=== PATIENT | male | born 1980 | race Caucasian/White ===

== ENCOUNTER 2017-01-03 16:04 | Emergency (ER) | payer MEDICAID ==
--- NOTE | 2017-01-03 17:24 | UC ---
Ear Complaint HPI - HPI Summary HPI Summary: patient has had 2 days of bloody milky white draninage from the right ear - History of Current Complaint Chief Complaint: UCEar Stated Complaint: EAR DRAINAGE Time Seen by Provider: 01/03/17 17:10 Hx Obtained From: Patient Onset/Duration: Sudden Onset, Lasting Days Severity Initially: Mild Severity Currently: Mild Associated Signs/Symptoms: Positive: Discharge - Allergies/Home Medications Allergies/Adverse Reactions: Allergies Allergy/AdvReac Type Severity Reaction Status Date / Time Amoxicillin Allergy Unknown Verified 06/28/15 14:25 Reaction Details Eggs or Egg-derived Products Allergy Unknown Verified 06/28/15 14:25 Reaction Details Influenza Vaccines Allergy Unknown Verified 06/28/15 14:25 Reaction Details Penicillins Allergy Unknown Verified 06/28/15 14:25 Reaction Details PMH/Surg Hx/FS Hx/Imm Hx Previously Healthy: Yes Endocrine History Of: Denies: Diabetes, Thyroid Disease Cardiovascular History Of: Denies: Cardiac Disorders, Hypertension Respiratory History Of: Denies: COPD, Asthma GI/ History Of: Denies: Ulcer - Surgical History Surgical History: Unable to Obtain/Confirm - Family History Known Family History: Positive: Hypertension, Seizure Disorder - Social History Alcohol Use: None Substance Use Type: None Smoking Status (MU): Never Smoked Tobacco Review of Systems Constitutional: Negative Skin: Negative Eyes: Negative ENT: Ear Ache Respiratory: Negative Cardiovascular: Negative Gastrointestinal: Negative Genitourinary: Negative Motor: Negative Neurovascular: Negative Musculoskeletal: Negative Neurological: Negative Psychological: Negative All Other Systems Reviewed And Are Negative: Yes Physical Exam Triage Information Reviewed: Yes Appearance: No Pain Distress, Well-Nourished, Ill-Appearing, Pain Distress Vital Signs: Initial Vital Signs Temp 97.7 F 01/03/17 17:11 Resp 20 01/03/17 17:11 Vital Signs Reviewed: Yes Eye Exam: Normal ENT: Positive: Pharyngeal erythema, TM red, Other: - external otitis noted in right ear Dental Exam: Normal Neck exam: Normal Neck: Positive: Supple, Nontender, No Lymphadenopathy Respiratory Exam: Normal Respiratory: Positive: Chest non-tender, Lungs clear, Normal breath sounds Cardiovascular Exam: Normal Cardiovascular: Positive: RRR, No Murmur, Pulses Normal Abdominal Exam: Normal Abdomen Description: Positive: Nontender, No Organomegaly, Soft Bowel Sounds: Positive: Present Musculoskeletal Exam: Normal Musculoskeletal: Positive: Strength Intact, ROM Intact, No Edema Neurological Exam: Normal Neurological: Positive: Alert Psychological Exam: Normal Psychological: Positive: Age Appropriate Behavior Skin Exam: Normal Ear Complaint Course/Dx - Course Course Of Treatment: hx obtained, meds reviewed, exam performed, meds prescribed. - Differential Dx/Diagnosis Differential Diagnosis/HQI/PQRI: Foreign Body, Otitis Externa, Otitis Media, URI Provider Diagnoses: Otitis externa right ear Discharge - Discharge Plan Condition: Stable Disposition: HOME Prescriptions: Ciproflox/Dexameth OTIC.SUSP* [Ciprodex OTIC.SUSP*] 4 drop RIGHT EAR BID #1 btl Patient Education Materials: Otitis Externa (ED) Additional Instructions: Use the medication as prescribed. Follow up as needed.
== END 2017-01-03 17:44 | disposition home or self-care (01) ==
LOC: UCEAST 16:04
DX: H60.91 Unspecified otitis externa, right ear (principal); Z88.1 Allergy status to other antibiotic agents; Z88.0 Allergy status to penicillin
CPT/HCPCS: 99212; G0463

== ENCOUNTER 2017-01-10 16:12 | Emergency (ER) | payer MEDICAID ==
[2017-01-10 17:19] VITALS: BP 100/85
--- NOTE | 2017-01-10 18:44 | UC ---
Ear Complaint HPI - HPI Summary HPI Summary: The patient comes in today for: 1. Right ear drainage: Onset: one week ago. Palliative/provocative: Nothing. Quality: Bloody discharge. Region: Right ear Severity: No know pain behavior. Associated symptoms: Event: He had diagnosis of right otitis externa. He got his last dose this AM. He was picked up from his work site with more drainage than before. He has a diagnosis of profound hearing loss. But, he does not act like he has less hearing. Fevers: None. * - History of Current Complaint Chief Complaint: UCEar Stated Complaint: EAR COMPLAINT Time Seen by Provider: 01/10/17 18:38 Hx Obtained From: Patient, Family/Warehouse Receiving Clerk - Allergies/Home Medications Allergies/Adverse Reactions: Allergies Allergy/AdvReac Type Severity Reaction Status Date / Time Amoxicillin Allergy Unknown Verified 01/10/17 17:01 Reaction Details Eggs or Egg-derived Products Allergy Unknown Verified 01/10/17 17:01 Reaction Details Influenza Vaccines Allergy Unknown Verified 01/10/17 17:01 Reaction Details Penicillins Allergy Unknown Verified 01/10/17 17:01 Reaction Details PMH/Surg Hx/FS Hx/Imm Hx Previously Healthy: No - Cerebral palsy with spasticity, IDD, profound hearing loss, depression Endocrine History Of: Denies: Diabetes, Thyroid Disease, Hyperthyroidism, Hypothyroidism, Dyslipidemia Cardiovascular History Of: Denies: Cardiac Disorders, Hypertension, Pacemaker/ICD, Myocardial Infarction , Congestive Heart Failure, Atrial Fibrillation, Deep Vein Thrombosis, Bleeding Disorders Respiratory History Of: Denies: COPD, Asthma, Bronchitis, Pneumonia, Pulmonary Embolism GI/ History Of: Denies: Gastroesophageal Reflux, Ulcer, Gastrointestinal Bleed, Gall Bladder Disease, Kidney Stones, Diverticulitis, Renal Disease, Urosepsis Neurological History Of: Denies: TIA, CVA, Dementia, Seizures, Migraine Psychological History Of: Reports: Depression Denies: Anxiety, Bipolar Disorder, Schizophrenia, Post Traumatic Stress Disorder Cancer History Of: Denies: Lung Cancer, Colorectal Cancer, Breast Cancer, Prostate Cancer, Cervical Cancer Other History Of: Negative For: HIV, Hepatitis B, Hepatitis C, Anticoagulant Therapy - Surgical History Surgical History: None - Family History Known Family History: Positive: Hypertension, Seizure Disorder - Social History Occupation: Unemployed Alcohol Use: None Substance Use Type: None Smoking Status (MU): Never Smoked Tobacco Review of Systems Constitutional: Negative Eyes: Negative ENT: Ear Ache Respiratory: Negative Cardiovascular: Negative Gastrointestinal: Negative Genitourinary: Negative All Other Systems Reviewed And Are Negative: Yes Physical Exam Triage Information Reviewed: Yes Completion Of Physical Exam Limited Due To: Other - He is non-vocal. He is cooperative. Appearance: No Pain Distress, Well-Nourished, Ill-Appearing Vital Signs: Initial Vital Signs Temp 98.5 F 01/10/17 17:02 Pulse 84 01/10/17 17:02 Resp 18 01/10/17 17:02 BP 100/85 01/10/17 17:02 Vital Signs Reviewed: Yes Eyes: Positive: Conjunctiva Clear. Negative: Discharge ENT: Positive: Hearing grossly normal, Other: - He would not open his mouth. Left TM marrero and translucent. Right TM not seen. Copious purulent and hemorrhagic discharge from right ear. He would not allow for me to examine it.. Negative: Nasal congestion, Nasal drainage Dental: Negative: Gross Decay/Caries @, Dental Fracture @ Neck: Positive: Supple, Nontender, No Lymphadenopathy. Negative: Nuchal Rigidity Respiratory: Positive: Lungs clear, No respiratory distress, No accessory muscle use. Negative: Crackles, Wheezing Cardiovascular: Positive: RRR, No Murmur Abdomen Description: Positive: Nontender, No Organomegaly, Soft Musculoskeletal: Positive: Strength Intact, ROM Intact, Other: - He has spastic legs. Neurological: Positive: Alert. Negative: Muscle Tone Normal - He has spastic legs. Psychological: Positive: Other: - He is interactive in behavior and is cooperative. Skin: Negative: rashes, breakdown Diagnostics - Laboratory Diagnostic Studies Completed/Ordered: Right otitis media/externa. Ear Complaint Course/Dx - Differential Dx/Diagnosis Differential Diagnosis/HQI/PQRI: Otitis Externa, Otitis Media Provider Diagnoses: Right otitis externa/media Discharge - Discharge Plan Condition: Stable Disposition: HOME Patient Education Materials: Otitis Externa (ED), Otitis Media (ED) Referrals: Neto Dickinson MD [Primary Care Provider] - Wale Hernández MD [Medical Doctor] - As Soon As Possible (Please contact Dr. Hernández's office as soon as you can for a follow-up evaluation.)
== END 2017-01-10 19:19 | disposition home or self-care (01) ==
LOC: UCEAST 16:12
DX: H60.91 Unspecified otitis externa, right ear (principal); H66.91 Otitis media, unspecified, right ear; G80.1 Spastic diplegic cerebral palsy; E11.9 Type 2 diabetes mellitus without complications; H91.90 Unspecified hearing loss, unspecified ear; F32.9 Major depressive disorder, single episode, unspecified; Z88.1 Allergy status to other antibiotic agents; Z88.7 Allergy status to serum and vaccine; Z88.0 Allergy status to penicillin
CPT/HCPCS: 99212; G0463

== ENCOUNTER 2017-06-08 15:48 | Emergency (ER) | payer MEDICAID ==
[2017-06-08 15:57] VITALS: BP 106/69
--- NOTE | 2017-06-08 16:18 | UC ---
Ear Complaint HPI - HPI Summary HPI Summary: 36 y/o male PMHX MR guanako presents to the urgent care accompany by his lead case manager Mrs Sarah Fuentes c/o RT ear discharge noticed at his jail [facility] at [place] yesterday. workers compensation claims analyst denies fever, LEVIN, SOB, chest pain, N/V/D. She states he has been healthy. workers compensation claims analyst request form to be filled out. - History of Current Complaint Chief Complaint: UCEar Stated Complaint: EAR DRAINING Time Seen by Provider: 06/08/17 16:17 Hx Obtained From: Patient, Family/Digital Sales Representative - workers compensation claims analyst Mrs Sarah Barnard Hx From Patient Unobtainable Due To: Other - Mental retardation Onset/Duration: Gradual Onset, Lasting Days Severity Initially: Mild Severity Currently: None Pain Intensity: 0 Pain Scale Used: 0-10 Numeric Aggravating Factors: Nothing Alleviating Factors: Nothing Associated Signs/Symptoms: Positive: Discharge - white - Allergies/Home Medications Allergies/Adverse Reactions: Allergies Allergy/AdvReac Type Severity Reaction Status Date / Time Amoxicillin Allergy Unknown Verified 06/08/17 15:57 Reaction Details Eggs or Egg-derived Products Allergy Unknown Verified 06/08/17 15:57 Reaction Details Influenza Vaccines Allergy Unknown Verified 06/08/17 15:57 Reaction Details Penicillins Allergy Unknown Verified 06/08/17 15:57 Reaction Details PMH/Surg Hx/FS Hx/Imm Hx Previously Healthy: Yes - Mental Disability Neurological History: Seizures - as a child Other History Of: Negative For: HIV, Hepatitis B, Hepatitis C, Anticoagulant Therapy - Surgical History Surgical History: None - Family History Known Family History: Positive: Hypertension, Seizure Disorder - Social History Occupation: Disabled Lives: Long-Term - [facility] at [place] Alcohol Use: None Substance Use Type: None Smoking Status (MU): Never Smoked Tobacco - Immunization History Vaccination Up to Date: Yes Review of Systems Constitutional: Negative Skin: Negative Eyes: Negative ENT: Ear Ache - RT ear with white discharge, no pain Respiratory: Negative Cardiovascular: Negative Gastrointestinal: Negative Genitourinary: Negative Motor: Negative Neurovascular: Negative Musculoskeletal: Negative Neurological: Negative Psychological: Negative Is Patient Immunocompromised?: Yes All Other Systems Reviewed And Are Negative: Yes Physical Exam Triage Information Reviewed: Yes Appearance: Well-Appearing, No Pain Distress, Well-Nourished Vital Signs: Initial Vital Signs Temp 98.3 F 06/08/17 15:52 Pulse 81 06/08/17 15:52 Resp 20 06/08/17 15:52 BP 106/69 06/08/17 15:52 Pulse Ox 98 06/08/17 15:52 Vital Signs Reviewed: Yes Eye Exam: Normal Eyes: Positive: Conjunctiva Clear - PERRLA, EOMI ENT: Positive: Normal ENT inspection, Pharynx normal, TMs normal - LF TM and external ear canal WNL. RT external ear canal with erythema and suppurative discharge, LF TM WNL. Negative: Nasal congestion, Nasal drainage, Tonsillar swelling, Tonsillar exudate Dental Exam: Normal Neck exam: Normal Neck: Positive: Supple, Nontender, No Lymphadenopathy Respiratory Exam: Normal Respiratory: Positive: Chest non-tender, Lungs clear, Normal breath sounds Cardiovascular Exam: Normal Cardiovascular: Positive: RRR, No Murmur, Pulses Normal, Brisk Capillary Refill Abdominal Exam: Normal Abdomen Description: Positive: Nontender, No Organomegaly, Soft. Negative: CVA Tenderness (R), CVA Tenderness (L) Bowel Sounds: Positive: Present Musculoskeletal Exam: Normal Musculoskeletal: Positive: Strength Intact, ROM Intact, No Edema, Other: - Scoliosis Neurological Exam: Normal Psychological Exam: Normal Psychological: Positive: Normal Response To Family Skin Exam: Normal Ear Complaint Course/Dx - Course Course Of Treatment: 36 y/o male PMHX MR mujica presents to the urgent care accompany by his lead case manager Mrs Sarah Fuentes c/o RT ear discharge noticed at his jail [facility] at [place] yesterday. workers compensation claims analyst denies fever, LEVIN, SOB , chest pain, N/V/D. She states he has been healthy. workers compensation claims analyst request form to be filled out. HX obtained. Pt with RT acute Otitis externa on PE. Pt Rx Cortisporin otic drops. Washer And Crusher Tender advised if not improvement of symptoms to f/ u with PCP for further evaluation and treatment. Home group form filled out. - Differential Dx/Diagnosis Differential Diagnosis/HQI/PQRI: Cerumen Impaction, Mastoiditis, Otitis Externa , Otitis Media, Perforated TM Provider Diagnoses: 1- RT acute otits externa Discharge - Discharge Plan Condition: Stable Disposition: HOME Prescriptions: Neomyc/Polym/HC 1% OTIC SUSP* [Cortisporin Otic Susp 1%*] 4 drop RIGHT EAR QID # 1 btl Patient Education Materials: Otitis Externa (ED) Referrals: Neftaly Sun MD [Primary Care Provider] - If Needed Additional Instructions: 1- Please apply otic antibiotic as directed 2-If symptoms do not improve or worsen please return to the urgent care or f/u with your PCP for further evaluation and treatment.
== END 2017-06-08 16:43 | disposition home or self-care (01) ==
LOC: UCEAST 15:48
DX: H60.501 Unspecified acute noninfective otitis externa, right ear (principal); R56.9 Unspecified convulsions; F79 Unspecified intellectual disabilities; Z88.0 Allergy status to penicillin; Z88.7 Allergy status to serum and vaccine
CPT/HCPCS: 99212; G0463

== ENCOUNTER 2017-06-13 16:47 | Emergency (ER) | payer MEDICAID ==
--- NOTE | 2017-06-13 18:13 | UC ---
Ear Complaint HPI - HPI Summary HPI Summary: 36 yo male recently rxed for OE now with ? fever no n/v/d pt non verbal - History of Current Complaint Chief Complaint: UCEar Stated Complaint: FEVER Time Seen by Provider: 06/13/17 17:53 Hx Obtained From: Family/Transcribing Operator Head Onset/Duration: Gradual Onset, Lasting Hours Severity Initially: Moderate Severity Currently: None Pain Intensity: 0 Pain Scale Used: Adult Non Verbal Alleviating Factors: Nothing Associated Signs/Symptoms: Positive: Hearing Loss - chronic. Negative: Discharge, Foreign Body Sensation, Trauma to Ear, Swelling @, URI Symptoms - Allergies/Home Medications Allergies/Adverse Reactions: Allergies Allergy/AdvReac Type Severity Reaction Status Date / Time Amoxicillin Allergy Unknown Verified 06/13/17 17:15 Reaction Details Eggs or Egg-derived Products Allergy Unknown Verified 06/13/17 17:15 Reaction Details Influenza Vaccines Allergy Unknown Verified 06/13/17 17:15 Reaction Details Penicillins Allergy Unknown Verified 06/13/17 17:15 Reaction Details PMH/Surg Hx/FS Hx/Imm Hx Previously Healthy: Yes - MR/no verbal Other History Of: Negative For: HIV, Hepatitis B, Hepatitis C, Anticoagulant Therapy - Surgical History Surgical History: None - Family History Known Family History: Positive: Hypertension, Seizure Disorder - Social History Alcohol Use: None Substance Use Type: None Smoking Status (MU): Never Smoked Tobacco - Immunization History Vaccination Up to Date: Yes Review of Systems Constitutional: Fever - ?, Fatigue Skin: Negative Eyes: Negative ENT: Ear Ache - ??? Respiratory: Negative Cardiovascular: Negative Gastrointestinal: Negative Genitourinary: Negative Motor: Negative Neurovascular: Negative Musculoskeletal: Negative Neurological: Negative Psychological: Negative Is Patient Immunocompromised?: No All Other Systems Reviewed And Are Negative: Yes Physical Exam Triage Information Reviewed: Yes Appearance: Well-Appearing - alert/active/well hydrated/does not appear in pain , No Pain Distress, Well-Nourished Vital Signs: Initial Vital Signs Temp 98.2 F 06/13/17 17:11 Resp 16 06/13/17 17:11 Vital Signs Reviewed: Yes Eyes: Positive: Conjunctiva Clear ENT: Positive: Pharynx normal, TM bulging - R, TM red - R. Negative: Nasal congestion, Nasal drainage Neck: Positive: Supple Respiratory: Positive: Lungs clear, Normal breath sounds, No respiratory distress, No accessory muscle use Cardiovascular: Positive: RRR, No Murmur Musculoskeletal: Positive: No Edema Neurological Exam: Normal Psychological Exam: Normal Skin Exam: Normal Ear Complaint Course/Dx - Differential Dx/Diagnosis Provider Diagnoses: otitis media Discharge - Discharge Plan Condition: Stable Disposition: HOME Prescriptions: Azithromycin 200/5 SUSP(NF) [Zithromax 200 mg/5 ml SUSP(NF)] 400 mg PO .NOW, THEN 200MG JEANETTE #1 btl Patient Education Materials: Earache (ED) Referrals: Neftaly Sun MD [Primary Care Provider] - If Needed
== END 2017-06-13 18:24 | disposition home or self-care (01) ==
LOC: UCEAST 16:47
DX: H66.90 Otitis media, unspecified, unspecified ear (principal)
CPT/HCPCS: 99212; G0463

== ENCOUNTER 2017-10-11 23:53 | Emergency (ER) | payer MEDICAID ==
[2017-10-12] MEDS ORDERED: NS 0.9% 1000 ML* 1,000 ML IV SCH (03:15)
[2017-10-12] MEDS ORDERED: LORazepam INJ* 2 MG/ML 1 ML VIAL ONE ×4 (03:22→03:30)
[2017-10-12] MEDS: LORazepam INJ* 2 MG/ML 1 ML VIAL IV PUSH ONE ×2 (03:25→03:35)
[2017-10-12 05:07] LABS: Urine Appearance Clear; Urine Blood Negative (Negative); Urine Color Yellow; Urine Ketones Trace (Negative); Urine Protein Negative (Negative); Urine Specific Gravity 1.026 (1.010-1.030); Urine Urobilinogen Negative (Negative)
[2017-10-12 05:42] LABS: ABS Basophils 0 10^3/ul (0-0.2); ABS Eosinophils 0 10^3/ul (0-0.6); ABS Lymphocytes 1.8 10^3/ul (1.0-4.8); ABS Monocytes 0.6 10^3/ul (0-0.8); ABS Neutrophils 5.3 10^3/ul (1.5-7.7); ABS Nucleated RBC 0 10^3/ul; Eosinophil % 0.3 % (0-6); Hematocrit 41 % (42-52); Hemoglobin 14.3 g/dl (14.0-18.0); Lymphocyte % 22.7 % (25-47); Mean Corpuscular HGB Conc 35 g/dl (31-36); Mean Corpuscular Hemoglobin 32 pg (27-31); Mean Corpuscular Volume 92 fL (80-94); Mean Platelet Volume 8 um3 (7.4-10.4); Nucleated Red Blood Cells % 0; Platelet Count 217 10^3/ul (150-450); Red Blood Count 4.46 10^6/ul (4.0-5.4); Red Cell Distribution Width 12 % (10.5-15); White Blood Count 7.7 10^3/ul (3.5-10.8)
[2017-10-12 06:01] LABS: EGFR Non-African American 117.8 (>60)
[2017-10-12 06:46] VITALS: BP 121/66
--- NOTE | 2017-10-12 08:05 | RAD ---
INDICATION: Fever in a nonverbal patient. COMPARISON: Most recent chest x-ray December 26, 2008 TECHNIQUE: Single AP portable view of the chest was obtained. FINDINGS: Image quality is compromised due to the relative inferiority of a portable chest x-ray. The heart and mediastinum exhibit normal size and contour. The lungs are grossly clear. There is no evidence of a large pleural effusion. Visualized bones are normal for the patient's age. IMPRESSION: No radiographic evidence for acute cardiopulmonary abnormality on this portable chest x-ray.
--- NOTE | 2017-10-28 16:53 | ED ---
Lina Shaw Emily, scribed for Rory Schulz MD on 10/12/17 at 0302 . 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 The patient rates the pain 0/10 in severity. Symptoms aggravated by nothing. Symptoms alleviated by nothing. Principal Examiner reports patient experiencing decreased urinary frequency, diaphoresis, fever, and continuous movement. Principal Examiner denies pt experiencing nausea and vomiting. - History of Current Complaint Chief Complaint: EDGeneral Hx Obtained From: Family/Principal Examiner Onset/Duration: Started Hours Ago, Still Present Timing: Constant Initial Severity: Mild Current Severity: Mild Pain Intensity: 0 Pain Scale Used: 0-10 Numeric Aggravating Factors: Nothing Alleviating Factors: Nothing Associated Signs and Symptoms: Other: - Positive decreased urinary frequency, diaphoresis, fever, and continuous movement. Negative nausea and vomiting - Allergy/Home Medications Allergies/Adverse Reactions: Allergies Allergy/AdvReac Type Severity Reaction Status Date / Time Amoxicillin Allergy Unknown Verified 06/13/17 17:15 Reaction Details Eggs or Egg-derived Products Allergy Unknown Verified 06/13/17 17:15 Reaction Details Influenza Vaccines Allergy Unknown Verified 06/13/17 17:15 Reaction Details Penicillins Allergy Unknown Verified 06/13/17 17:15 Reaction Details PMH/Surg Hx/FS Hx/Imm Hx Previously Healthy: No Endocrine/Hematology History: Denies: Hx Anticoagulant Therapy, Hx Diabetes, Hx Thyroid Disease Cardiovascular History: Denies: Hx Congestive Heart Failure, Hx Deep Vein Thrombosis, Hx Hypertension , Hx Myocardial Infarction, Hx Pacemaker/ICD Respiratory History: Denies: Hx Asthma, Hx Chronic Obstructive Pulmonary Disease (COPD), Hx Lung Cancer, Hx Pneumonia, Hx Pulmonary Embolism GI History: Denies: Hx Gall Bladder Disease, Hx Gastrointestinal Bleed, Hx Ulcer, Hx Urosepsis History: Denies: Hx Kidney Stones, Hx Renal Disease Neurological History: Denies: Hx Dementia, Hx Migraine, Hx Seizures, Hx Transient Ischemic Attacks (TIA) Psychiatric History: Reports: Hx Depression Denies: Hx Anxiety, Hx Schizophrenia, Hx Bipolar Disorder Infectious Disease History: No Infectious Disease History: Denies: Hx Hepatitis, Hx Human Immunodeficiency Virus (HIV), Traveled Outside the [place] in Last 30 Days - Family History Known Family History: Positive: Hypertension, Seizure Disorder - Social History Occupation: Disabled Lives: Assisted Living Alcohol Use: None Substance Use Type: Reports: None Smoking Status (MU): Never Smoked Tobacco Review of Systems Positive: Fever, Skin Diaphoresis Negative: Vomiting, Nausea Genitourinary: Other - Positive decreased urinary frequency Positive: Other - Positive agitation and "continuous movement" All Other Systems Reviewed And Are Negative: Yes Physical Exam - Summary Physical Exam Summary: Appearance: Well-appearing, Well-nourished Skin: Warm, Dry, No rash Eyes: Normal, PERRL, EOMI, sclera anicteric ENT: Normal Neck: Supple, nontender Respiratory: Clear to auscultation Cardiovascular: S1, S2, no murmur, no rub, no gallop Abdomen: Soft, nontender, no organomegaly Bowel sounds: Present Musculoskeletal: Normal, Strength/ROM Intact, no edema, pulses symmetrical Neurological: Normal, cranial nerves II-XII WNL, follows commands, gait not tested, sensation intact to pin and light touch, nonverbal Psychiatric: Agitated. Combative Triage Information Reviewed: Yes Vital Signs On Initial Exam: Initial Vitals Temp Pulse Resp BP Pulse Ox 97.6 F 100 16 105/68 97 10/12/17 00:12 10/12/17 00:12 10/12/17 00:12 10/12/17 00:12 10/12/17 00:12 Vital Signs Reviewed: Yes Diagnostics - Vital Signs Vital Signs Temp Pulse Resp BP Pulse Ox 10/12/17 00:12 97.6 F 100 16 105/68 97 - Laboratory Lab Results: Lab Results 10/12/17 10/12/17 10/12/17 Range/Units 04:55 05:30 05:30 WBC 7.7 (3.5-10.8) 10^3/ul RBC 4.46 (4.0-5.4) 10^6/ul Hgb 14.3 (14.0-18.0) g/dl Hct 41 L (42-52) % MCV 92 (80-94) fL MCH 32 H (27-31) pg MCHC 35 (31-36) g/dl RDW 12 (10.5-15) % Plt Count 217 (150-450) 10^3/ul MPV 8 (7.4-10.4) um3 Neut % (Auto) 68.7 (38-83) % Lymph % (Auto) 22.7 L (25-47) % Swain % (Auto) 7.8 (1-9) % Eos % (Auto) 0.3 (0-6) % Baso % (Auto) 0.5 (0-2) % Absolute Neuts (auto) 5.3 (1.5-7.7) 10^3/ul Absolute Lymphs (auto) 1.8 (1.0-4.8) 10^3/ul Absolute Monos (auto) 0.6 (0-0.8) 10^3/ul Absolute Eos (auto) 0 (0-0.6) 10^3/ul Absolute Basos (auto) 0 (0-0.2) 10^3/ul Absolute Nucleated RBC 0 10^3/ul Nucleated RBC % 0 Sodium 139 (133-145) mmol/L Potassium 3.7 (3.5-5.0) mmol/L Chloride 106 (101-111) mmol/L Carbon Dioxide 26 (22-32) mmol/L Anion Gap 7 (2-11) mmol/L BUN 18 (6-24) mg/dL Creatinine 0.75 (0.67-1.17) mg/dL Est GFR ( Amer) 151.5 (>60) Est GFR (Non-Af Amer) 117.8 (>60) BUN/Creatinine Ratio 24.0 H (8-20) Glucose 93 (70-100) mg/dL Calcium 9.5 (8.6-10.3) mg/dL Total Bilirubin 0.70 (0.2-1.0) mg/dL AST 19 (13-39) U/L ALT 15 (7-52) U/L Alkaline Phosphatase 55 (34-104) U/L Total Protein 6.8 (6.4-8.9) g/dL Albumin 4.3 (3.2-5.2) g/dL Globulin 2.5 (2-4) g/dL Albumin/Globulin Ratio 1.7 (1-3) Lipase 17 (11.0-82.0) U/L Urine Color Yellow Urine Appearance Clear Urine pH 5.0 (5-9) Ur Specific Johnson 1.026 (1.010-1.030) Urine Protein Negative (Negative) Urine Ketones Trace H (Negative) Urine Blood Negative (Negative) Urine Nitrate Negative (Negative) Urine Bilirubin Negative (Negative) Urine Urobilinogen Negative (Negative) Ur Leukocyte Esterase Negative (Negative) Urine Glucose Negative (Negative) Urine Ascorbic Acid * H (Negative) Influenza A (Rapid) (Negative) Influenza B (Rapid) (Negative) 10/12/17 Range/Units 06:01 WBC (3.5-10.8) 10^3/ul RBC (4.0-5.4) 10^6/ul Hgb (14.0-18.0) g/dl Hct (42-52) % MCV (80-94) fL MCH (27-31) pg MCHC (31-36) g/dl RDW (10.5-15) % Plt Count (150-450) 10^3/ul MPV (7.4-10.4) um3 Neut % (Auto) (38-83) % Lymph % (Auto) (25-47) % Swain % (Auto) (1-9) % Eos % (Auto) (0-6) % Baso % (Auto) (0-2) % Absolute Neuts (auto) (1.5-7.7) 10^3/ul Absolute Lymphs (auto) (1.0-4.8) 10^3/ul Absolute Monos (auto) (0-0.8) 10^3/ul Absolute Eos (auto) (0-0.6) 10^3/ul Absolute Basos (auto) (0-0.2) 10^3/ul Absolute Nucleated RBC 10^3/ul Nucleated RBC % Sodium (133-145) mmol/L Potassium (3.5-5.0) mmol/L Chloride (101-111) mmol/L Carbon Dioxide (22-32) mmol/L Anion Gap (2-11) mmol/L BUN (6-24) mg/dL Creatinine (0.67-1.17) mg/dL Est GFR ( Amer) (>60) Est GFR (Non-Af Amer) (>60) BUN/Creatinine Ratio (8-20) Glucose (70-100) mg/dL Calcium (8.6-10.3) mg/dL Total Bilirubin (0.2-1.0) mg/dL AST (13-39) U/L ALT (7-52) U/L Alkaline Phosphatase (34-104) U/L Total Protein (6.4-8.9) g/dL Albumin (3.2-5.2) g/dL Globulin (2-4) g/dL Albumin/Globulin Ratio (1-3) Lipase (11.0-82.0) U/L Urine Color Urine Appearance Urine pH (5-9) Ur Specific Johnson (1.010-1.030) Urine Protein (Negative) Urine Ketones (Negative) Urine Blood (Negative) Urine Nitrate (Negative) Urine Bilirubin (Negative) Urine Urobilinogen (Negative) Ur Leukocyte Esterase (Negative) Urine Glucose (Negative) Urine Ascorbic Acid (Negative) Influenza A (Rapid) Negative (Negative) Influenza B (Rapid) Negative (Negative) Result Diagrams: 10/12/17 05:30 10/12/17 05:30 Lab Statement: Any lab studies that have been ordered have been reviewed, and results considered in the medical decision making process. - Radiology CXR Radiology Interpretation Completed By: ED Physician - CXR reveals, per ED physician, no acute disease. 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 Principal Examiner reports patient experiencing decreased urinary frequency, diaphoresis, fever, and continuous movement. Principal Examiner denies pt experiencing nausea and vomiting. Physical Exam Findings. Nonverbal. Agitated. Combative. CXR reveals, per ED physician, no acute disease. Bloodwork and UA obtained. In the ED course the patient was given Ativan and fluids. Patient will be discharged with follow up from PCP. The patient is agreeable with this plan. - Diagnoses Provider Diagnoses: Low grade fever, Mental retardation, viral respiratory infection type unclear Discharge - Discharge Plan Condition: Good Disposition: REHAB UNIT - [facility] PMRU Discharge Disposition Comment: rehab Patient Education Materials: Viral Syndrome (ED) Referrals: Neftaly Sun MD [Primary Care Provider] - The documentation as recorded by the Lina valles Emily accurately reflects the service I personally performed and the decisions made by me, Rory Schulz MD.
== END 2017-10-12 06:43 ==
LOC: ED 23:53
DX: R50.9 Fever, unspecified (principal); R11.2 Nausea with vomiting, unspecified; F79 Unspecified intellectual disabilities; J98.8 Other specified respiratory disorders
CPT/HCPCS: 36415; 71045; 80053; 81003; 83690; 85025; 87502; 99283; J2060